=== PATIENT | male | born 1975 | race Caucasian/White ===

== ENCOUNTER 2020-04-10 09:35 | Inpatient (IN) ==
[~2020-04-10 09:35] MED LIST: Lactated Ringers 1000 ml BAG 1,000 ML IV SCH
[2020-04-10] MEDS ORDERED: Clindamycin 900 MG/D5W BAG(*) 900 MG/50 ML BAG IVPB ONE (10:11)
[2020-04-10] MEDS ORDERED: fentaNYL 100 mcg/2 ml 50 MCG/ML VIAL ONE ×3 (11:53→16:47)
[2020-04-10] MEDS ORDERED: Succinylcholine 200 mg VIAL 20 mg/ml 10 ml VIAL (200 mg) ONE (11:54)
[2020-04-10] MEDS ORDERED: Midazolam 2 mg/2 ml VIAL 1 mg/ml 2 ml VIAL (2 mg) ONE (11:54)
[2020-04-10] MEDS ORDERED: Rocuronium 50 mg VIAL 10 mg/ml 5 ml VIAL (50 mg) ONE ×2 (11:56→14:09)
[2020-04-10] MEDS ORDERED: Propofol 10 MG/ML 20 ML BTL ONE (11:59)
[2020-04-10] MEDS ORDERED: Lidocaine 2% PF 5 ML VIAL ONE (12:52)
[2020-04-10] MEDS ORDERED: ROPIVACAINE 5 MG/ML 30 ML BTL (0.5%) ONE ×2 (12:53→14:27)
[2020-04-10] MEDS ORDERED: Glycopyrrolate IV 0.2 MG/ML 1 ML VIAL ONE (13:51)
[2020-04-10] MEDS ORDERED: Dexamethasone IV 4 MG/ML VIAL 1 ml VIAL ONE (14:31)
[2020-04-10] MEDS ORDERED: EPHEDrine (Pressors) 50 MG/ML VIAL ONE ×2 (14:31→15:33)
[2020-04-10] MEDS ORDERED: Ondansetron 4 mg VIAL 2 MG/ML 2 ml VIAL ONE (14:31)
[2020-04-10] MEDS ORDERED: diPHENhydraMINE 25 mg TAB PO PRN (15:00)
[2020-04-10] MEDS ORDERED: Lactulose 30 ml UDC PO PRN (15:00)
[2020-04-10] MEDS ORDERED: Ondansetron ODT 4 mg TAB 4 MG TAB PO PRN (15:00)
[2020-04-10] MEDS ORDERED: Ondansetron 4 mg VIAL 2 MG/ML 2 ml VIAL IV PRN ×2 (15:00→16:43)
[2020-04-10] MEDS ORDERED: diPHENhydraMINE IV 50 MG/ML 1 ml VIAL (BENADRYL) IV PRN (15:00)
[2020-04-10] MEDS ORDERED: oxyCODONE/Acetamin 5/325 mg TAB PO PRN (15:00)
[2020-04-10] MEDS ORDERED: Magnesium Hydroxide LIQ 30 ML UDC PO PRN (15:00)
[2020-04-10] MEDS ORDERED: Lactated Ringers 1000 ml BAG 1,000 ML IV SCH (15:00)
[2020-04-10] MEDS ORDERED: Phenylephrine 40 mcg/mL 10mL (400mcg) SYRINGE ONE (15:30)
[2020-04-10] MEDS ORDERED: Sugammadex 500 MG/5 ML 5 ml VIAL IV PUSH ONE (15:59)
[2020-04-10] MEDS ORDERED: Naloxone 0.4 mg VIAL 0.4 mg/ml 1 ml VIAL IV PRN (16:43)
[2020-04-10] MEDS: fentaNYL 100 mcg/2 ml 50 MCG/ML VIAL IV PRN ×4 (16:49→17:16)
[2020-04-10] MEDS: oxyCODONE/Acetamin 5/325 mg TAB PO PRN (18:37)
[2020-04-10] MEDS: Magnesium Hydroxide LIQ 30 ML UDC PO SCH (20:56)
[2020-04-10] MEDS: Clindamycin 600 MG/NS BAG(*) 600 MG/50 ML BAG IV SCH (22:19)
[2020-04-11] MEDS ORDERED: Polyethylene Glycol 3350 17 GM PACKET PO PRN (00:01)
[2020-04-11] MEDS: oxyCODONE/Acetamin 5/325 mg TAB PO PRN ×3 (00:09→11:55)
[2020-04-11] MEDS: Clindamycin 600 MG/NS BAG(*) 600 MG/50 ML BAG IV SCH ×2 (06:18→13:15)
[2020-04-11 06:28] LABS: Hematocrit 36 % (42-52); Hemoglobin 12.2 g/dL (14.0-18.0); Mean Platelet Volume 6.8 fL (7.4-10.4); Platelet Count 333 10^3/uL (150-450)
[2020-04-11 06:50] LABS: BUN/Creatinine Ratio 19.3 (8-20); Calcium 8.6 mg/dL (8.6-10.3); EGFR African American 113.3 (>60); EGFR Non-African American 93.6 (>60); Potassium 4.3 mmol/L (3.5-5.0)
[2020-04-11] MEDS: Magnesium Hydroxide LIQ 30 ML UDC PO SCH (08:08)
[2020-04-11] MEDS ORDERED: Vitamin THERAPEUTIC TAB PO SCH (09:00)
[2020-04-11 12:05] VITALS: BP 107/59
== END 2020-04-11 14:15 | disposition home or self-care (01) | DRG 302 ==
LOC: AA → OBSVTOIN 09:35 → INTOOBSV 09:35 → SSU 18:13
PROVIDERS: ADMIT Orthopaedic Surgery Adult Reconstructive Orthopaedic Surgery; ATTEND Orthopaedic Surgery Adult Reconstructive Orthopaedic Surgery

== ENCOUNTER 2020-10-13 09:09 | Inpatient (IN) ==
[2020-10-13] MEDS ORDERED: oxyCODONE/Acetamin 5/325 mg TAB PO PRN (09:44)
[2020-10-13] MEDS ORDERED: Ondansetron 4 mg VIAL 2 MG/ML 2 ml VIAL IV PRN (09:50)
[2020-10-13] MEDS ORDERED: diPHENhydraMINE 25 mg TAB PO PRN (09:50)
[2020-10-13] MEDS ORDERED: diPHENhydraMINE IV 50 MG/ML 1 ml VIAL (BENADRYL) IV PRN (09:50)
[2020-10-13 10:04] LABS: ABS Basophils 0.1 10^3/ul (0-0.2); ABS Eosinophils 0.2 10^3/ul (0-0.6); ABS Lymphocytes 1.7 10^3/ul (1.0-4.8); ABS Monocytes 0.7 10^3/ul (0-0.8); ABS Neutrophils 4.8 10^3/ul (1.5-7.7); Hematocrit 39 % (42-52); Hemoglobin 12.8 g/dL (14.0-18.0); Lymphocyte % 22.3 %; Mean Corpuscular HGB Conc 33 g/dL (31-36); Mean Corpuscular Hemoglobin 28 pg (27-31); Mean Corpuscular Volume 84 fL (80-94); Mean Platelet Volume 6.4 fL (7.4-10.4); Platelet Count 440 10^3/uL (150-450); Red Blood Count 4.57 10^6 /uL (4.18-5.48); Red Cell Distribution Width 14 % (10-15); White Blood Count 7.5 10^3/uL (3.5-10.8)
[2020-10-13 10:20] LABS: Albumin 3.8 g/dL (3.2-5.2); BUN/Creatinine Ratio 13.2 (8-20); C Reactive Protein 49.8 mg/L (<8.01); Calcium 9.2 mg/dL (8.6-10.3); EGFR African American 151.9 (>60); EGFR Non-African American 125.5 (>60); Total Bilirubin 0.5 mg/dL (0.2-1.0); Total Protein 7.8 g/dL (6.4-8.9)
[2020-10-13 13:23] LABS: Erythrocyte Sed Rate 69 mm/Hr (0-14)
[2020-10-13] MEDS: oxyCODONE/Acetamin 5/325 mg TAB PO PRN ×2 (14:41→20:01)
[2020-10-13] MEDS: Lactated Ringers 1000 ml BAG 1,000 ML IV SCH (14:42)
[2020-10-13 19:39] LABS: ABS Basophils 0.1 10^3/ul (0-0.2); ABS Eosinophils 0.2 10^3/ul (0-0.6); ABS Lymphocytes 2.3 10^3/ul (1.0-4.8); ABS Monocytes 0.7 10^3/ul (0-0.8); ABS Neutrophils 4.2 10^3/ul (1.5-7.7); Eosinophil % 3.1 %; Hematocrit 36 % (42-52); Hemoglobin 11.8 g/dL (14.0-18.0); Lymphocyte % 30.8 %; Mean Corpuscular HGB Conc 33 g/dL (31-36); Mean Corpuscular Hemoglobin 28 pg (27-31); Mean Corpuscular Volume 85 fL (80-94); Mean Platelet Volume 6.3 fL (7.4-10.4); Nucleated Red Blood Cells % 0.1; Platelet Count 409 10^3/uL (150-450); Red Cell Distribution Width 15 % (10-15); White Blood Count 7.4 10^3/uL (3.5-10.8)
[2020-10-13 19:48] LABS: Activated Partial Thrombo Time 29.1 seconds (26.0-38.0); INR 1.08 (0.82-1.09)
[2020-10-13 19:56] LABS: EGFR African American 135.7 (>60); EGFR Non-African American 112.1 (>60)
[2020-10-13] MEDS ORDERED: Heparin 5000 UNITS/ML 1 mL VIAL SUBCUT SCH (21:00)
[2020-10-14] MEDS: Lactated Ringers 1000 ml BAG 1,000 ML IV SCH (00:05)
[2020-10-14] MEDS ORDERED: Dextrose 50% Syringe 50 ml 25 GM/50 ML SYRINGE IV PUSH PRN ×2 (07:41→07:42)
[2020-10-14] MEDS ORDERED: Influenza VAC *QUAD* 2020-21* 0.5 ML SYRINGE IM ONE (09:00)
[2020-10-14] MEDS ORDERED: Bacitracin INJECTION 50,000 UNITS ONE (18:02)
[2020-10-14] MEDS ORDERED: ROPIVACAINE 5 MG/ML 30 ML BTL (0.5%) ONE (18:02)
[2020-10-14] MEDS ORDERED: Midazolam 2 mg/2 ml VIAL 1 mg/ml 2 ml VIAL (2 mg) ONE (18:05)
[2020-10-14] MEDS ORDERED: Propofol 10 MG/ML 20 ML BTL ONE (18:07)
[2020-10-14] MEDS ORDERED: Succinylcholine 200 mg VIAL 20 mg/ml 10 ml VIAL (200 mg) ONE (18:10)
[2020-10-14] MEDS ORDERED: Rocuronium 50 mg VIAL 10 mg/ml 5 ml VIAL (50 mg) ONE (18:10)
[2020-10-14] MEDS ORDERED: fentaNYL 100 mcg/2 ml 50 MCG/ML VIAL ONE ×3 (18:24→19:57)
[2020-10-14] MEDS ORDERED: Ondansetron 4 mg VIAL 2 MG/ML 2 ml VIAL ONE (18:43)
[2020-10-14] MEDS ORDERED: ceFAZolin VIAL VIAL ONE (18:49)
[2020-10-14] MEDS ORDERED: Metoclopramide 5 MG/ML VIAL (10 mg) IV PRN (19:40)
[2020-10-14] MEDS ORDERED: Naloxone 0.4 mg VIAL 0.4 mg/ml 1 ml VIAL IV PRN (19:40)
[2020-10-14] MEDS: fentaNYL 100 mcg/2 ml 50 MCG/ML VIAL IV PRN ×3 (20:00→20:42)
[2020-10-14] MEDS: Insulin GLARGINE 100 un/ml 10 ml VIAL SUBCUT SCH (22:16)
[2020-10-15] MEDS: Lactated Ringers 1000 ml BAG 1,000 ML IV SCH (00:44)
[2020-10-15] MEDS: ceFAZolin 1 GM X 3 DOSES POST-OP Q8H (AddVan) IVPB SCH ×3 (02:57→18:30)
[2020-10-15] MEDS: oxyCODONE/Acetamin 5/325 mg TAB PO PRN ×5 (03:00→21:04)
[2020-10-15] MEDS: Insulin GLARGINE 100 un/ml 10 ml VIAL SUBCUT SCH (21:24)
[2020-10-16] MEDS: oxyCODONE/Acetamin 5/325 mg TAB PO PRN (04:02)
[2020-10-16 06:36] LABS: ABS Eosinophils 0.2 10^3/ul (0-0.6); ABS Lymphocytes 1.3 10^3/ul (1.0-4.8); ABS Monocytes 0.6 10^3/ul (0-0.8); ABS Neutrophils 5.9 10^3/ul (1.5-7.7); Eosinophil % 2.3 %; Hematocrit 36 % (42-52); Hemoglobin 12.3 g/dL (14.0-18.0); Lymphocyte % 15.8 %; Mean Corpuscular HGB Conc 34 g/dL (31-36); Mean Corpuscular Hemoglobin 29 pg (27-31); Mean Corpuscular Volume 84 fL (80-94); Mean Platelet Volume 6.6 fL (7.4-10.4); Platelet Count 382 10^3/uL (150-450); Red Blood Count 4.27 10^6 /uL (4.18-5.48); Red Cell Distribution Width 15 % (10-15)
[2020-10-16] MEDS ORDERED: Senna TAB 8.6 mg TAB PO ONE (10:12)
[2020-10-16] MEDS ORDERED: Polyethylene Glycol 3350 17 GM PACKET PO PRN (10:13)
[2020-10-16 11:12] VITALS: BP 144/85
[2020-10-16] MEDS ORDERED: Insulin GLARGINE 100 un/ml 10 ml VIAL SUBCUT SCH (21:00)
[2020-10-21 13:24] LABS: IgG Immunoblot Negative (Negative); IgM Immunoblot Negative (Negative)
== END 2020-10-16 16:15 | disposition home health service (06) | DRG 313 ==
LOC: ED 09:09 → SSU 11:03
PROVIDERS: ADMIT Pediatrics; ATTEND Internal Medicine

== ENCOUNTER 2021-02-14 16:59 | Inpatient (IN) ==
[2021-02-14 18:32] LABS: ABS Basophils 0.1 10^3/ul (0-0.2); ABS Eosinophils 0.2 10^3/ul (0-0.6); ABS Lymphocytes 2.3 10^3/ul (1.0-4.8); Hematocrit 37 % (42-52); Hemoglobin 12.4 g/dL (14.0-18.0); Lymphocyte % 24.4 %; Mean Corpuscular HGB Conc 34 g/dL (31-36); Mean Corpuscular Hemoglobin 28 pg (27-31); Mean Corpuscular Volume 83 fL (80-94); Mean Platelet Volume 6.4 fL (7.4-10.4); Platelet Count 431 10^3/uL (150-450); Red Blood Count 4.43 10^6 /uL (4.18-5.48); Red Cell Distribution Width 15 % (10-15); White Blood Count 9.6 10^3/uL (3.5-10.8)
[2021-02-14 18:47] LABS: BUN/Creatinine Ratio 17.2 (8-20); C Reactive Protein 68.27 mg/L (<8.01); Calcium 9.4 mg/dL (8.6-10.3); EGFR African American 162.9 (>60); EGFR Non-African American 134.6 (>60); Potassium 3.6 mmol/L (3.5-5.0); Total Bilirubin 0.6 mg/dL (0.2-1.0)
[2021-02-14] MEDS ORDERED: Vancomycin 1,000 MG in NS 0.9% 250 ml 250 ML IVPB ONE (19:14)
[2021-02-14 19:48] LABS: Erythrocyte Sed Rate 65 mm/Hr (0-14)
[2021-02-14] MEDS ORDERED: Vancomycin per Pharmacy 1 EA NOTE FOLLOW UP SCH (21:00)
[2021-02-14] MEDS ORDERED: Dextrose 50% Syringe 50 ml 25 GM/50 ML SYRINGE IV PUSH PRN (22:40)
[2021-02-15] MEDS: Enoxaparin 40 MG/0.4 ML SYR SUBCUT SCH ×2 (01:17→20:20)
[2021-02-15] MEDS: Vancomycin 1,250 MG in NS 0.9% 250 ml 250 ML IVPB SCH ×3 (05:45→22:17)
[2021-02-15 06:15] LABS: ABS Basophils 0.1 10^3/ul (0-0.2); ABS Eosinophils 0.2 10^3/ul (0-0.6); ABS Lymphocytes 1.5 10^3/ul (1.0-4.8); ABS Monocytes 0.8 10^3/ul (0-0.8); ABS Neutrophils 4.8 10^3/ul (1.5-7.7); Eosinophil % 2.4 %; Hematocrit 35 % (42-52); Hemoglobin 11.6 g/dL (14.0-18.0); Mean Corpuscular HGB Conc 33 g/dL (31-36); Mean Corpuscular Hemoglobin 28 pg (27-31); Mean Corpuscular Volume 83 fL (80-94); Mean Platelet Volume 6.4 fL (7.4-10.4); Nucleated Red Blood Cells % 0.1; Platelet Count 393 10^3/uL (150-450); Red Blood Count 4.19 10^6 /uL (4.18-5.48); Red Cell Distribution Width 15 % (10-15); White Blood Count 7.3 10^3/uL (3.5-10.8)
[2021-02-15 06:33] LABS: BUN/Creatinine Ratio 14.8 (8-20); EGFR African American 172.2 (>60); EGFR Non-African American 142.3 (>60); Potassium 3.7 mmol/L (3.5-5.0)
[2021-02-15] MEDS: Insulin GLARGINE 100 un/ml 10 ml VIAL SUBCUT SCH (09:56)
[2021-02-16] MEDS ORDERED: Vancomycin Trough Check NOTE FOLLOW UP ONE (05:30)
[2021-02-16 05:55] LABS: ABS Eosinophils 0.3 10^3/ul (0-0.6); ABS Lymphocytes 1.4 10^3/ul (1.0-4.8); ABS Monocytes 0.6 10^3/ul (0-0.8); Eosinophil % 3.6 %; Hematocrit 36 % (42-52); Lymphocyte % 18.9 %; Mean Corpuscular HGB Conc 33 g/dL (31-36); Mean Corpuscular Hemoglobin 28 pg (27-31); Mean Corpuscular Volume 84 fL (80-94); Mean Platelet Volume 6.3 fL (7.4-10.4); Platelet Count 396 10^3/uL (150-450); Red Blood Count 4.32 10^6 /uL (4.18-5.48); Red Cell Distribution Width 15 % (10-15); White Blood Count 7.3 10^3/uL (3.5-10.8)
[2021-02-16 06:10] LABS: BUN/Creatinine Ratio 15.9 (8-20); Calcium 9.1 mg/dL (8.6-10.3); EGFR African American 165.9 (>60); EGFR Non-African American 137.1 (>60); Potassium 3.7 mmol/L (3.5-5.0)
[2021-02-16 06:11] LABS: EGFR African American 162.9 (>60); EGFR Non-African American 134.6 (>60)
[2021-02-16 06:20] LABS: Vancomycin Trough 9.1 mcg/mL
[2021-02-16] MEDS: Vancomycin 1,250 MG in NS 0.9% 250 ml 250 ML IVPB SCH ×3 (06:43→22:44)
[2021-02-16] MEDS: Insulin GLARGINE 100 un/ml 10 ml VIAL SUBCUT SCH (08:57)
[2021-02-16 10:43] LABS: C Reactive Protein 54.05 mg/L (<8.01)
[2021-02-16] MEDS: Enoxaparin 40 MG/0.4 ML SYR SUBCUT SCH (22:43)
[2021-02-17] MEDS: Vancomycin 1,250 MG in NS 0.9% 250 ml 250 ML IVPB SCH ×2 (06:25→14:09)
[2021-02-17] MEDS: Insulin GLARGINE 100 un/ml 10 ml VIAL SUBCUT SCH (09:00)
[2021-02-17] MEDS ORDERED: Clotrimazole 1% CREAM 30 gm TOPICAL SCH (10:00)
[2021-02-17 15:37] VITALS: BP 132/70
[2021-02-18] MEDS ORDERED: Vancomycin Trough Check NOTE FOLLOW UP ONE (05:30)
== END 2021-02-17 20:25 | disposition home or self-care (01) | DRG 349 ==
LOC: SSU 16:59 → ED 16:59 → OBSVTOIN 19:59 → SSU 22:50
PROVIDERS: ADMIT Student in an Organized Health Care Education/Training Program; ATTEND Hospitalist

== ENCOUNTER 2021-08-13 11:59 | Inpatient (IN) ==
[~2021-08-13 11:59] MED LIST changes: +Buffered Lidocaine 1% SYRIN 1 ml INTRADERM ONE; +Tobramycin POWDER 1.2 GM VIAL ONE
[2021-08-13] MEDS ORDERED: Buffered Lidocaine 1% SYRIN 1 ml INTRADERM ONE (12:36)
[2021-08-13] MEDS ORDERED: ceFAZolin 2 GM in NS PREMIX 2 GM/100 ML BAG IVPB ONE (12:36)
[2021-08-13] MEDS ORDERED: Bupivacaine 0.5% SDV PF 30ML VIAL ONE (13:38)
[2021-08-13] MEDS ORDERED: Dexamethasone IV 4 MG/ML VIAL 1 ml VIAL ONE ×2 (13:38→16:37)
[2021-08-13] MEDS ORDERED: fentaNYL 100 mcg/2 ml 50 MCG/ML VIAL ONE ×2 (13:38→18:05)
[2021-08-13] MEDS ORDERED: Midazolam 2 mg/2 ml VIAL 1 mg/ml 2 ml VIAL (2 mg) ONE (13:38)
[2021-08-13] MEDS ORDERED: Vancomycin 1,000 MG VIAL ONE ×3 (15:03→15:09)
[2021-08-13] MEDS ORDERED: Rocuronium 50 mg VIAL 10 mg/ml 5 ml VIAL (50 mg) ONE (15:54)
[2021-08-13] MEDS ORDERED: HYDROmorphone 1 MG/1 ML SYRINGE ONE ×3 (16:25→20:57)
[2021-08-13] MEDS ORDERED: Esmolol 10 MG/ML 10 ML (100 mg) ONE (16:26)
[2021-08-13] MEDS ORDERED: Ondansetron 4 mg VIAL 2 MG/ML 2 ml VIAL ONE (16:37)
[2021-08-13] MEDS ORDERED: ceFAZolin 1 GM ADVAN 1 GM ADDV.VIAL IVPB ONE (16:45)
[2021-08-13] MEDS ORDERED: Magnesium Hydroxide LIQ 30 ML UDC PO PRN (16:52)
[2021-08-13] MEDS ORDERED: Lactulose 30 ml UDC PO PRN (16:52)
[2021-08-13] MEDS ORDERED: Ondansetron ODT 4 mg TAB 4 MG TAB PO PRN (16:52)
[2021-08-13] MEDS ORDERED: Ondansetron 4 mg VIAL 2 MG/ML 2 ml VIAL IV PRN (16:52)
[2021-08-13] MEDS ORDERED: diPHENhydraMINE 25 mg TAB PO PRN (16:52)
[2021-08-13] MEDS ORDERED: diPHENhydraMINE IV 50 MG/ML 1 ml VIAL (BENADRYL) IV PRN ×2 (16:52→18:35)
[2021-08-13] MEDS ORDERED: Propofol 10 MG/ML 20 ML BTL ONE ×2 (18:04→18:53)
[2021-08-13] MEDS ORDERED: DiMENhydriNATE IV 50 mg/ml 1 ml VIAL IV PUSH PRN (18:35)
[2021-08-13] MEDS ORDERED: Naloxone 0.4 mg VIAL 0.4 mg/ml 1 ml VIAL IV PRN (18:35)
[2021-08-13] MEDS ORDERED: Phenylephrine 40 mcg/mL 10mL (400mcg) SYRINGE ONE (18:56)
[2021-08-13] MEDS ORDERED: Vancomycin per Pharmacy 1 EA NOTE FOLLOW UP SCH (20:00)
[2021-08-13] MEDS ORDERED: Dextrose 50% Syringe 50 ml 25 GM/50 ML SYRINGE IV PUSH PRN (20:51)
[2021-08-13] MEDS: HYDROmorphone 1 MG/1 ML SYRINGE IV PRN ×3 (20:59→21:15)
[2021-08-13] MEDS: Lactated Ringers 1000 ml BAG 1,000 ML IV SCH (22:23)
[2021-08-13] MEDS ORDERED: Vancomycin Random Level NOTE FOLLOW UP ONE (22:30)
[2021-08-13] MEDS ORDERED: cefTRIAXone 2 GM ADDV.VIAL 2 GM in NS 0.9% 100 ml BAG 100 ML IV SCH (22:30)
[2021-08-13] MEDS: Morphine 2 MG/ML SYRINGE IV PRN (22:42)
[2021-08-13] MEDS: Magnesium Hydroxide LIQ 30 ML UDC PO SCH (22:58)
[2021-08-14] MEDS ORDERED: Vancomycin 2,000 MG in NS 0.9% 500 ml BAG 500 ML IVPB ONE
[2021-08-14] MEDS: Morphine 2 MG/ML SYRINGE IV PRN (03:28)
[2021-08-14 06:10] LABS: ABS Lymphocytes 1.2 10^3/ul (1.0-4.8); ABS Neutrophils 9.7 10^3/ul (1.5-7.7); Hematocrit 32 % (42-52); Hemoglobin 10.6 g/dL (14.0-18.0); Lymphocyte % 9.9 %; Mean Corpuscular HGB Conc 33 g/dL (31-36); Mean Corpuscular Hemoglobin 28 pg (27-31); Mean Corpuscular Volume 85 fL (80-94); Mean Platelet Volume 6.3 fL (7.4-10.4); Platelet Count 378 10^3/uL (150-450); Red Blood Count 3.77 10^6 /uL (4.18-5.48); Red Cell Distribution Width 15 % (10-15); White Blood Count 11.9 10^3/uL (3.5-10.8)
[2021-08-14 06:24] LABS: Calcium 8.3 mg/dL (8.6-10.3); EGFR African American 162.9 (>60); EGFR Non-African American 134.6 (>60)
[2021-08-14] MEDS: Lactated Ringers 1000 ml BAG 1,000 ML IV SCH (07:33)
[2021-08-14] MEDS: Vancomycin 1,250 MG in NS 0.9% 250 ml 250 ML IVPB SCH ×2 (08:35→15:33)
[2021-08-14] MEDS: Magnesium Hydroxide LIQ 30 ML UDC PO SCH (08:38)
[2021-08-14] MEDS ORDERED: Vitamin THERAPEUTIC TAB PO SCH (09:00)
[2021-08-14] MEDS ORDERED: Insulin GLARGINE 100 un/ml 10 ml VIAL SUBCUT SCH (09:00)
[2021-08-14] MEDS ORDERED: Flu vaccine *QUAD* 2021-22* 0.5 ML SYRINGE IM ONE (09:00)
[2021-08-14] MEDS ORDERED: cefTRIAXone 2 GM ADDV.VIAL 2 GM in NS 0.9% 100 ml BAG 100 ML IV SCH ×2 (15:00→21:00)
[2021-08-14 17:51] VITALS: BP 113/78
[2021-08-15] MEDS ORDERED: Vancomycin Trough Check NOTE FOLLOW UP ONE (07:30)
== END 2021-08-14 18:17 | disposition home or self-care (01) | DRG 320 ==
LOC: AA 11:59 → SSU 21:56
PROVIDERS: ADMIT Orthopaedic Surgery Adult Reconstructive Orthopaedic Surgery; ATTEND Orthopaedic Surgery Adult Reconstructive Orthopaedic Surgery